=== PATIENT | female | born 1990 | race Two or more races ===

== ENCOUNTER 2019-04-04 02:09 | Emergency (ER) | payer MEDICAID ==
[~2019-04-04] VITALS: Ht 177.8 cm; Wt 61.2 kg
[2019-04-04 02:10] VITALS: BP 115/75
--- NOTE | 2019-04-04 02:10 | NUR ---
PT BIBFRIEND C/O N/V AFTER DRINKING 4 GLASSES OF WINE AND TAKING DOXYCYCLINE AND FLAGYL. PT AOX4. NAD NOTED. RESP EVEN AND UNLABORED. PT HAS BAG WITH VOMIT WITH HER UPON ARRIVAL. PT ABLE TO PROVIDE URINE AT THIS TIME. PT ON MONITOR IN BED 2 WITH FRIEND AT BEDSIDE. WILL CONTINUE TO AMARI.
[2019-04-04] MEDS ORDERED: ONDANSETRON HCL/PF 4 MG/2 ML VIAL ONE (02:26)
[2019-04-04] MEDS ORDERED: IV NS 0.9% 1,000 ML BAG IV ONE (02:30)
[2019-04-04] MEDS ORDERED: ONDANSETRON HCL/PF 4 MG/2 ML VIAL IVP ONE (02:30)
--- NOTE | 2019-04-04 02:36 | NUR ---
BLOOD DRAWN AND GIVEN TO PHLEB
[2019-04-04 02:52] LABS: BASOPHILS % (AUTO) 0.3 % (0.0-2.0); EOSINOPHILS % (AUTO) 1.2 % (0.0-6.0); HEMATOCRIT 38 % (33-45); HEMOGLOBIN 12.7 g/dL (11.5-14.8); LYMPHOCYTES % (AUTO) 28.8 % (20.0-44.0); MEAN CORPUSCULAR HGB CONC 34 g/dl (31.0-36.0); MEAN CORPUSCULAR VOLUME 87 fL (82-100); MONOCYTES # (AUTO) 0.5 /CMM (0.1-1.30); MONOCYTES % (AUTO) 7.9 % (2.0-12.0); NEUTROPHILS # (AUTO) 4.3 /CMM (1.8-8.9); NEUTROPHILS % (AUTO) 61.8 % (43.0-81.0); PLATELET COUNT (AUTO) 243 /CMM (150-450); RED BLOOD CELL COUNT(AUTO) 4.35 MIL/uL (4.0-5.2); WHITE BLOOD COUNT (AUTO) 6.9 K/uL (4.3-11.0)
[2019-04-04 03:02] LABS: CALCIUM, SERUM 8.9 mg/dL (8.5-10.1); CREATININE 0.9 mg/dL (0.6-1.3); POTASSIUM 3.2 mmol/L (3.5-5.1)
[2019-04-04 03:08] LABS: ALBUMIN 4.3 g/dL (3.4-5.0); BILIRUBIN,DIRECT 0.1 mg/dL (0.0-0.2); BILIRUBIN,TOTAL 0.2 mg/dL (0.2-1.0); TOTAL PROTEIN, SERUM 7.4 g/dL (6.4-8.2)
--- NOTE | 2019-04-04 03:33 | NUR ---
IV removed. Catheter intact and site benign. Pressure and 4x4 applied to site. No bleeding noted.Patient discharged to home in stable condition. Written and verbal after care instructions given. Patient verbalizes understanding of instruction.
== END 2019-04-04 03:36 | disposition home or self-care (01) ==
LOC: ER 02:13
DX: R11.2 Nausea with vomiting, unspecified (principal); Z88.2 Allergy status to sulfonamides; Z88.1 Allergy status to other antibiotic agents
CPT/HCPCS: 36415; 80048; 80076; 84703; 85025; 96361; 96374; 99283; J2405; J7030